=== PATIENT | female | born 1960 | race Caucasian/White ===

== ENCOUNTER → 2018-02-09 12:12 | Outpatient (CLI) | payer OTHER, SELFPAY ==
--- NOTE | 2018-02-09 12:20 | DI.RAD.S_ITS ---
PROCEDURE: XR RIBS LT 2V INDICATIONS: pain from fall left flank and humerus TECHNIQUE: 3 views of the left ribs were acquired and single view of the chest. COMPARISON: None. FINDINGS: Surgical changes and devices: None. Bones and chest wall: No displaced rib fracture identified. No suspicious bony lesions. Overlying soft tissues appear unremarkable. Lungs and pleura: The visualized lung appears clear. No pleural effusions or pneumothorax are visible. IMPRESSION: 1. No displaced rib fracture identified. Dictated by: Larry Malhotra M.D. on 02/09/2018 at 13:24 Approved by: Larry Malhotra M.D. on 02/09/2018 at 13:26
--- NOTE | 2018-02-09 12:20 | DI.RAD.S_ITS ---
PROCEDURE: XR HUMERUS LT 2V INDICATIONS: pain from fall left flank and humerus TECHNIQUE: 2 views of the humerus were acquired. COMPARISON: None. FINDINGS: Bones: No fractures or dislocations. No suspicious bony lesions. Soft tissues: No suspicious soft tissue calcifications. IMPRESSION: 1. No fracture or dislocation. Dictated by: Larry Malhotra M.D. on 02/09/2018 at 13:24 Approved by: Larry Malhotra M.D. on 02/09/2018 at 13:24
== END ==
DX: R07.81 Pleurodynia (principal); M79.622 Pain in left upper arm
CPT/HCPCS: 71100; 73060